=== PATIENT | female | born 1990 | race Caucasian/White ===

== ENCOUNTER 2018-07-24 09:16 | Emergency (ER) | payer MEDICAID ==
[~2018-07-24] VITALS: Ht 157.5 cm; Wt 63.0 kg
[2018-07-24 09:27] VITALS: Ht 157.5 cm; Wt 63.0 kg
[2018-07-24] MEDS ORDERED: ACETAMINOPHEN 325 MG TAB PO ONE (10:30)
[2018-07-24] MEDS ORDERED: SOD CHLORIDE 0.9% 1,000 ML IV ONE (10:30)
[2018-07-24] MEDS ORDERED: OSELTAMIVIR 75 MG CAP PO ONE (11:30)
[2018-07-24] MEDS ORDERED: CEFTRIAXONE 1 GM/50 ML (PMX) 50 ML IVPB ONE (11:30)
[2018-07-24] MEDS ORDERED: SODIUM CHLORIDE 0.9% 1L BAG IV* STA (12:04)
[2018-07-24] MEDS ORDERED: CEPH-443 PO (12:44)
[2018-07-24] MEDS ORDERED: OSEL75CA23 PO (12:44)
[2018-07-24] MEDS ORDERED: ACET500C5 PO (12:44)
[2018-07-24] MEDS ORDERED: BEN25 PO (12:44)
[2018-07-24 13:12] VITALS: BP 109/60; PULSE 100; RESP 20
--- NOTE | 2018-07-24 21:27 | ERD ---
ER Documentation Chief Complaint Chief Complaint pt bib family with c/o flu like symptoms since yesterday HPI 27-year-old female patient with no significant past medical history presents to ED complaining of fever, started yesterday. Patient has a low-grade fever 100.8. Ibuprofen, Tylenol was ordered to further downtrend patient's temperature. Denies any chest pain, shortness of breath, nausea, vomiting, diarrhea, neck stiffness. ROS All systems reviewed and are negative except as per history of present illness. Medications Home Meds Active Scripts Diphenhydramine Hcl* (Benadryl*) 25 Mg Cap, 25 MG PO QHS, #20 CAP Prov:TATIANA GARCIA-C 07/24/18 Oseltamivir Phosphate* (Tamiflu*) 75 Mg Capsule, 75 MG PO BID for 5 Days, #9 CAP you already took 1 tab in the hospital. you have 9 tabs left over to take over the course of 5 days. Prov:TATIANA GARCIA-C 07/24/18 Acetaminophen* (Tylophen*) 500 Mg Capsule, 1 CAP PO Q6H PRN for PAIN AND OR ELEVATED TEMP, #20 CAP Prov:TATIANA GARCIA-C 07/24/18 Cephalexin* (Keflex*) 500 Mg Capsule, 500 MG PO QID for 7 Days, CAP Prov:TATIANA GARCIA-C 07/24/18 Allergies Allergies: Coded Allergies: No Known Allergy (Unverified , 07/24/18) PMhx/Soc Medical and Surgical Hx: pt denies Medical Hx, pt denies Surgical Hx Hx Alcohol Use: No Hx Substance Use: No Hx Tobacco Use: No FmHx Family History: No diabetes, No coronary disease Physical Exam Vitals Vital Signs Date Temp Pulse Resp B/P (MAP) Pulse Ox O2 O2 Flow FiO2 Time Delivery Rate 07/24/18 98.9 100 20 109/60 100 Room Air 13:12 (76) 07/24/18 98.9 124 20 104/58 100 Room Air 11:40 (73) 07/24/18 100.8 139 20 114/68 98 09:27 (83) Physical Exam Const: Srp-nbu-lgrqqjomy, well-nourished. In no acute distress. Smiling and playful. Head: Atraumatic, normocephalic Eyes: Normal Conjunctiva without injection. No purulent discharge. PERRL. EOMI ENT: Normal external ear. Ear canal without erythema. Tympanic membrane pearly caceres without effusion or bulging. Nasal canal clear with normal turbinates. Moist oropharynx without tonsillar exudates. Non-erythematous pharynx. Uvula midline. No drooling. No trismus. Neck: Full range of motion. No meningismus. No cervical lymphadenopathy. Resp: Clear to auscultation bilaterally. No wheezing, rhonchi, rales, or crackles. No accessory muscle use. No retractions. No stridor at rest. Cardio: Regular rate and rhythm. No murmurs, rubs or gallops. Abd: Soft, non tender, non distended. Normal bowel sounds. No palpable masses. Skin: No petechiae or rashes Ext: No cyanosis, or edema. Neur: Awake and alert. Psych: Normal Mood and Affect Results 24 hrs Laboratory Tests Test 07/24/18 10:19 07/24/18 10:28 Urine Color CAMILLE Urine Clarity CLOUDY Urine pH 5.0 Urine Specific [place] 1.026 Urine Ketones 2+ mg/dL Urine Nitrite NEGATIVE mg/dL Urine Bilirubin NEGATIVE mg/dL Urine Urobilinogen NEGATIVE mg/dL Urine Leukocyte Esterase TRACE Jasen/ul Urine Microscopic RBC 0 /HPF Urine Microscopic WBC 18 /HPF Urine Squamous Epithelial Cells FEW /HPF Urine Bacteria MODERATE /HPF Urine Mucus MANY /HPF Urine Hemoglobin NEGATIVE mg/dL Urine Glucose NEGATIVE mg/dL Urine Total Protein NEGATIVE mg/dl POC Beta HCG, Qualitative POSITIVE Current Medications Medications Dose Sig/Toi Start Time Status Last (Trade) Ordered Route PRN Stop Time Admin Dose Reason Admin 650 mg ONCE ONCE 07/24/18 DC 07/24/18 Acetaminophen PO 10:30 10:18 (Tylenol 07/24/18 10:31 Tab) Sodium 1,000 ml @ Q1H ONCE 07/24/18 DC 07/24/18 Chloride 1,000 mls/hr IV 10:30 10:31 07/24/18 11:29 Oseltamivir 75 mg ONCE ONCE 07/24/18 DC 07/24/18 Phosphate PO 11:30 11:40 (Tamiflu) 07/24/18 11:31 Ceftriaxone 50 ml @ ONCE ONCE 07/24/18 DC 07/24/18 Sodium 100 mls/hr IVPB 11:30 11:39 2/22/19 11:59 Sodium 890 ml BOLUS OVER 2 07/24/18 DC 07/24/18 Chloride HOURS STAT 12:04 12:12 (NS) IV* 07/24/18 12:06 Procedures/MDM 27-year-old female patient with no significant past medical problem is ED complaining of fever, cough, rhinorrhea. Patient has flulike symptoms, and her . Patient is . Patient has a low-grade fever 100.8. Patient is tachycardic at 139. Patient was given 30 mL/kg normal saline. Patient's influenza was positive. Urine also showed leukocyte esterase. Patient was treated for urinary tract infection. Patient will treat here in the ED with ceftriaxone 1 [address] IV. Discuss[address] with Dr. Lyon, who agreed with the management discharge plan. Low suspicion for sepsis, pneumonia, pyelonephritis, acute abdomen, ectopic , or other emergent conditions. Diagnosis: Influenza, Urinary tract infection, Fever Discharge medications: Benadryl, Tamiflu, Tylenol, Keflex Instructed parent to bring patient to follow up with court reporter in 1-2 days. Instructed parent to bring patient back to the ED sooner for any worsening symptoms. Parent's questions were answered. Parent understood and agreed with discharge plan. Patient discharged stable. Disclaimer: Inadvertent spelling and grammatical errors are likely due to EHR/dictation software use and do not reflect on the overall quality of patient care. Also, please note that the electronic time recorded on this note does not necessarily reflect the actual time of the patient encounter. Departure Diagnosis: Primary Impression: Influenza Additional Impressions: Urinary tract infection Urinary tract infection type: site unspecified Hematuria presence: without hematuria Qualified Codes: N39.0 - Urinary tract infection, site not specified Fever Fever type: unspecified Qualified Codes: R50.9 - Fever, unspecified Condition: Stable Patient Instructions: Influenza (Flu) and , Urinary Tract Infections in Women Referrals: COMMUNITY CLINICS YOU HAVE RECEIVED A MEDICAL SCREENING EXAM AND THE RESULTS INDICATE THAT YOU DO NOT HAVE A CONDITION THAT REQUIRES URGENT TREATMENT IN THE EMERGENCY DEPARTMENT. FURTHER EVALUATION AND TREATMENT OF YOUR CONDITION CAN WAIT UNTIL YOU ARE SEEN IN YOUR DOCTORS OFFICE WITHIN THE NEXT 1-2 DAYS. IT IS YOUR RESPONSIBILITY TO MAKE AN APPOINTMENT FOR FOLOW-UP CARE. IF YOU HAVE A PRIMARY DOCTOR --you should call your primary doctor and schedule an appointment IF YOU DO NOT HAVE A PRIMARY DOCTOR YOU CAN CALL OUR PHYSICIAN REFERRAL HOTLINE AT IF YOU CAN NOT AFFORD TO SEE A PHYSICIAN YOU CAN CHOSE FROM THE FOLLOWING [facility] [address] [facility] [address] [facility] [address] [facility] [address] [facility] [address] [facility]. [facility] [address] [facility]. [facility] YOU HAVE RECEIVED A MEDICAL SCREENING EXAM AND THE RESULTS INDICATE THAT YOU DO NOT HAVE A CONDITION THAT REQUIRES URGENT TREATMENT IN THE EMERGENCY DEPARTMENT. FURTHER EVALUATION AND TREATMENT OF YOUR CONDITION CAN WAIT UNTIL YOU ARE SEEN IN YOUR DOCTORS OFFICE WITHIN THE NEXT 1-2 DAYS. IT IS YOUR RESPONSIBILITY TO MAKE AN APPOINTMENT FOR FOLOW-UP CARE. IF YOU HAVE A PRIMARY DOCTOR --you should call your primary doctor and schedule and appointment IF YOU DO NOT HAVE A PRIMARY DOCTOR YOU CAN CALL OUR PHYSICIAN REFERRAL HOTLINE AT . IF YOU CAN NOT AFFORD TO SEE A PHYSICIAN YOU CAN CHOSE FROM THE FOLLOWING [facility]: [facility] [address] [place] [address] [facility] [address] [place] [address] [facility] [address] [place] [address] [facility] Additional Instructions: Call your primary care doctor TOMORROW for an appointment during the next 2-3 days.See the doctor sooner or return here if your condition worsens before your appointment time. TATIANA GARCIA PA-C Jul 24, 2018 21:27
== END 2018-07-24 13:12 | disposition home or self-care (01) ==
LOC: FTE 09:16 → EDUNIT# 09:16 → FTE 13:12
DX: O99.519 Diseases of the respiratory system complicating pregnancy, unspecified trimester (principal); O23.40 Unspecified infection of urinary tract in pregnancy, unspecified trimester; J10.1 Influenza due to other identified influenza virus with other respiratory manifestations; Z3A.00 Weeks of gestation of pregnancy not specified
CPT/HCPCS: 81001; 81025; 87400; J0696; J7030; Z7610; 96374

== ENCOUNTER 2018-12-14 11:04 | Inpatient (IN) | payer MEDICAID, OTHER ==
[~2018-12-14] VITALS: Ht 157.5 cm; Wt 81.3 kg
[~2018-12-14 11:04] MED LIST: ACET500C5 PO; BEN25 PO; CEPH-443 PO; OSEL75CA23 PO
[2018-12-14] MEDS ORDERED: PNV11TAB PO (11:22)
[2018-12-14 11:23] VITALS: Ht 157.5 cm; Wt 81.3 kg
[2018-12-14 11:26] VITALS: BP 136/90; PULSE 93; RESP 19
[2018-12-14] MEDS ORDERED: IBUPROFEN 600 MG TAB PO PRN (12:00)
[2018-12-14] MEDS ORDERED: AMPICILLIN 2 GM/NS (PMX) 100 ML IV ONE (12:00)
[2018-12-14] MEDS ORDERED: METHYLERGONOVINE 0.2 MG INJ IM PRN (12:00)
[2018-12-14] MEDS ORDERED: LIDOCAINE 1% (MPF) 30 ML INJ INJ PRN (12:00)
[2018-12-14] MEDS ORDERED: OXYTOCIN 30 UNITS/LR 500 ML IV SCH ×2 (12:00)
[2018-12-14] MEDS ORDERED: CARBOPROST 250 MCG INJ IM PRN (12:00)
[2018-12-14] MEDS ORDERED: OXYTOCIN 30 UNITS/LR 500 ML IV PRN (12:00)
[2018-12-14] MEDS ORDERED: BUTORPHANOL 2 MG INJ IV PRN (12:00)
[2018-12-14] MEDS ORDERED: MISOPROSTOL 200 MCG TAB PR PRN (12:00)
[2018-12-14] MEDS: LACTATED RINGER'S 1,000 ML IV SCH ×2 (13:26→17:41)
[2018-12-14] MEDS: MISOPROSTOL 50 MCG CAPSULE PO SCH (22:54)
[2018-12-15] MEDS ORDERED: MISOPROSTOL 50 MCG CAPSULE PO SCH ×2 (01:00→22:30)
[2018-12-15] MEDS: AMPICILLIN 1 GM/NS (PMX) 50 ML IV SCH ×5 (03:01→23:44)
[2018-12-15] MEDS: LACTATED RINGER'S 1,000 ML IV SCH ×2 (03:01→14:00)
[2018-12-15] MEDS: MISOPROSTOL 50 MCG CAPSULE PO SCH ×5 (03:02→20:43)
--- NOTE | 2018-12-15 13:04 | HP ---
Date/Time of Note Date/Time of Note DATE: 12/15/18 TIME: 13:03 OB - History Hx of Present Free Text/Dictation admitted for elevated BP in office and induction for PIH : 1 Para: 0 Ultrasounds: Normal mid trimester US Obstetrical Complications: None Medical Complications: None Past Family/Social History * Past Medical, Surgical, Family and Obstetric Histories reviewed from chart. OB Admission Exam Vital Signs Vital Signs Vital Signs Date Temp Pulse Resp B/P (MAP) Pulse Ox O2 O2 Flow FiO2 Time Delivery Rate 12/14/18 98.4 93 19 136/90 Room Air 11:26 (105) Physical Exam HEENT: WNL Heart: Rhythm Normal Lungs: Clear, Equal Abdomen: WNL Extremities: Normal Reflexes: Normal Cervical Dilatation: 2cm Effacement: 25% Station: -3 Membranes: Intact Heart Rate: 130's Accelerations: Accelerations Present Varibility: Moderate Contractions on Admission: 6-10 Minutes Apart Intensity: Moderate Last 72 hours Lab Results CBC & BMP 12/14/18 13:15 Liver Function Test 12/14/18 13:15 Alanine Aminotransferase (ALT/SGPT) 15 Albumin 3.6 Alkaline Phosphatase 185 H Aspartate Amino Transf (AST/SGOT) 22 Direct Bilirubin 0.00 Total Protein 7.2 OB Assessment/Plan Reason for admission: induction of labor (for PIH) Plan: Induction STEPHEN RICHARDSON MD Dec 15, 2018 13:04
[2018-12-15] MEDS ORDERED: MAGNESIUM SULFATE 4 GM/100 ML 100 ML IVPB ONE (19:00)
[2018-12-15] MEDS: MAGNESIUM SULFATE 20 GM/500 ML 500 ML IV SCH (20:22)
[2018-12-16] MEDS: LACTATED RINGER'S 1,000 ML IV SCH ×3 (01:38→19:26)
[2018-12-16] MEDS: AMPICILLIN 1 GM/NS (PMX) 50 ML IV SCH ×5 (03:43→20:04)
[2018-12-16] MEDS ORDERED: ACETAMINOPHEN 325 MG TAB PO ONE ×2 (06:38→15:30)
[2018-12-16] MEDS: MAGNESIUM SULFATE 20 GM/500 ML 500 ML IV SCH ×2 (06:44→17:01)
[2018-12-16] MEDS: OXYTOCIN 30 UNITS/LR 500 ML IV SCH (11:45)
[2018-12-17] MEDS: AMPICILLIN 1 GM/NS (PMX) 50 ML IV SCH ×7 (00:04→21:24)
[2018-12-17] MEDS: MAGNESIUM SULFATE 20 GM/500 ML 500 ML IV SCH ×3 (02:14→22:34)
[2018-12-17] MEDS: LACTATED RINGER'S 1,000 ML IV SCH (10:17)
--- NOTE | 2018-12-17 14:10 | PREAC ---
Date/Time of Note Date/Time of Note DATE: 12/17/18 TIME: 14:09 Anesthesia Eval and Record Evaluation Time Pre-Procedure Interview DATE: 12/17/18 TIME: 14:09 Age 28 Sex female NPO: 8 hrs Preoperative diagnosis Planned procedure labor epidural Past Medical History Past Medical History: Includes GI: Obesity Surgery & Anesthesia Issues No known issue Meds Anticoagulation: No Beta Mague within 24 hr: No Reason Beta Mague not given: Pt. not on B-Mague Reported Medications [id number] ( 19) 1 Each Tablet, 1 TAB PO DAILY, TAB 12/14/18 Discontinued Scripts Diphenhydramine Hcl* (Benadryl*) 25 Mg Cap, 25 MG PO QHS, #20 CAP Prov:TATIANA GARCIA PA-C 07/24/18 Oseltamivir Phosphate* (Tamiflu*) 75 Mg Capsule, 75 MG PO BID for 5 Days, #9 CAP you already took 1 tab in the hospital. you have 9 tabs left over to take over the course of 5 days. Prov:TATIANA GARCIA PA-C 07/24/18 Acetaminophen* (Tylophen*) 500 Mg Capsule, 1 CAP PO Q6H PRN for PAIN AND OR ELEVATED TEMP, #20 CAP Prov:TATIANA GARCIA PA-C 07/24/18 Cephalexin* (Keflex*) 500 Mg Capsule, 500 MG PO QID for 7 Days, CAP Prov:TATIANA GARCIA PA-C 07/24/18 Current Medications Ampicillin 50 ml @ 100 mls/hr Q4H IV Last administered on 12/17/18at 11:55; Admin Dose 100 MLS/HR; Start 12/14/18 at 16:00 Butorphanol Tartrate (Stadol) 2 mg Q2H PRN IV .PAIN SCALE 6-10 Last administered on 12/17/18at 12:23; Admin Dose 2 MG; Start 12/14/18 at 12:00 Lidocaine (Xylocaine 1% (Mpf)) 30 ml ONCE PRN INJ .EPISIOTOMY; Start 12/14/18 at 12:00 Oxytocin/Lactated Ringer's 500 ml @ 500 mls/hr ONCE POST IV ; Start 12/14/18 at 12:00 Oxytocin/Lactated Ringer's 500 ml @ 125 mls/hr POST IV ; Start 12/14/18 at 12:00 Ibuprofen (Motrin) 600 mg ONCE PRN PO .PAIN 1-5; Start 12/14/18 at 12:00 Oxytocin/Lactated Ringer's 500 ml @ 0 mls/hr ONCE PRN IV .VAGINAL BLEEDING; Start 12/14/18 at 12:00 Methylergonovine Maleate (Methergine) 0.2 mg ONCE PRN IM .VAGINAL BLEEDING; Start 12/14/18 at 12:00 Carboprost Tromethamine (Hemabate) 250 mcg ONCE PRN IM .VAGINAL BLEEDING; Start 12/14/18 at 12:00 Misoprostol (Cytotec) 1,[address] .VAGINAL BLEEDING; Start 12/14/18 at 12:00 Magnesium Sulfate 500 ml @ 50 mls/hr Q10H IV Last administered on 12/17/18at 12:11; Admin Dose 50 MLS/HR; Start 12/15/18 at 19:00 Oxytocin/Lactated Ringer's 500 ml @ 0 mls/hr Q0M IV Last administered on 12/16/18at 11:45; Admin Dose 1 MLS/HR; Start 12/16/18 at 12:00 Ondansetron HCl (Zofran Inj) 4 mg Q4H PRN IV NAUSEA AND/OR VOMITING Last administered on 12/17/18at 00:04; Admin Dose 4 MG; Start 12/17/18 at 00:00 Meds reviewed: Yes Allergies Coded Allergies: No Known Allergy (Unverified , 07/24/18) Allergies Reviewed: Yes Labs/Studies Labs Reviewed: Reviewed by anesthesiologist Result Diagram: 12/15/18201912/15/182019 test: Positive Pre-procedure Exam Last vitals Vital Signs Date Temp Pulse Resp B/P (MAP) Pulse Ox O2 O2 Flow FiO2 Time Delivery Rate 12/14/18 98.4 93 19 136/90 Room Air 11:26 (105) Airway: Adequate mouth opening, Adequate thyromental dist Mallampati: Mallampati II Teeth: Normal Lung: Normal Heart: Normal ASA Physical Status ASA physical status: 2 Emergency: None Planned Anesthetic Neuraxial: Epidural Pre-operative Attestations Prior to commencing anesthesia and surgery, the patient was re-evaluated, there was verification of: *The patient's identity *The results of appropriate recent lab work and preoperative vital signs *The above evaluation not changing prior to induction *Anesthetic plan, risk benefits, alternative and complications discussed with patient/family; questions answered; patient/family understands, accepts and wishes to proceed. BARRINGTON CAMARGO Dec 17, 2018 14:10
[2018-12-17] MEDS ORDERED: DIPHENHYDRAMINE 50 MG INJ IV PRN (14:30)
[2018-12-17] MEDS ORDERED: HYDROmorphONE 0.5 MG/0.5 ML SYG IV PRN ×2 (14:30)
[2018-12-17] MEDS ORDERED: ONDANSETRON 4 MG INJ IV PRN ×2 (14:30)
[2018-12-17] MEDS ORDERED: NALOXONE (0.4 MG/ML) INJ IV PRN (14:30)
[2018-12-17] MEDS ORDERED: KETOROLAC 30 MG INJ IV PRN (14:30)
[2018-12-17] MEDS: DEXTROSE 5%-LR 1,000 ML IV PRN (17:58)
[2018-12-17] MEDS: OXYTOCIN 30 UNITS/LR 500 ML IV SCH (17:58)
[2018-12-17] MEDS: FENTAnyl 2MCG/ML-ROPIV 0.2% 100 ML BAG EPI SCH ×2 (20:55→21:37)
[2018-12-17] MEDS ORDERED: CLINDAMYCIN 900 MG INJ IVPB SCH (21:00)
[2018-12-17] MEDS ORDERED: ACETAMINOPHEN 500 MG TAB PO PRN (21:00)
[2018-12-17] MEDS: CLINDAMYCIN 900 MG/D5W (PMX) 50 ML IVPB SCH (21:44)
[2018-12-18] MEDS: AMPICILLIN 1 GM/NS (PMX) 50 ML IV SCH ×5 (01:39→16:35)
[2018-12-18] MEDS: CLINDAMYCIN 900 MG/D5W (PMX) 50 ML IVPB SCH ×3 (03:33→15:24)
[2018-12-18] MEDS: LACTATED RINGER'S 1,000 ML IV SCH ×3 (03:34→16:08)
[2018-12-18] MEDS ORDERED: MINERAL OIL LIGHT 10 ML VIAL TOP PRN (04:00)
[2018-12-18] MEDS: FENTAnyl 2MCG/ML-ROPIV 0.2% 100 ML BAG EPI SCH ×2 (05:59→11:51)
[2018-12-18] MEDS: MAGNESIUM SULFATE 20 GM/500 ML 500 ML IV SCH (08:27)
[2018-12-18] MEDS ORDERED: LIDOCAINE 1.5%/EPI MPF (SDV) 30 ML VIAL ONE ×2 (09:18→18:16)
[2018-12-18] MEDS ORDERED: MINERAL OIL LIGHT 10 ML VIAL TOP ONE (13:30)
[2018-12-18] MEDS: DEXTROSE 5%-LR 1,000 ML IV PRN (17:25)
[2018-12-18] MEDS ORDERED: CEFAZOLIN 2 GM/50 ML (PMX) 50 ML IVPB ONE (18:14)
--- NOTE | 2018-12-18 18:15 | PREAC ---
Date/Time of Note Date/Time of Note DATE: 12/18/18 TIME: 18:14 Anesthesia Eval and Record Evaluation Time Pre-Procedure Interview DATE: 12/18/18 TIME: 18:14 Age 28 Sex female NPO: 8 hrs Preoperative diagnosis failure of progress Planned procedure c section Past Medical History Past Medical History: None Surgery & Anesthesia Issues No known issue Meds Anticoagulation: No Beta Mague within 24 hr: No Reason Beta Mague not given: Pt. not on B-Mague Reported Medications [id number] ( 19) 1 Each Tablet, 1 TAB PO DAILY, TAB 12/14/18 Discontinued Scripts Diphenhydramine Hcl* (Benadryl*) 25 Mg Cap, 25 MG PO QHS, #20 CAP Prov:TATIANA GARCIA PA-C 07/24/18 Oseltamivir Phosphate* (Tamiflu*) 75 Mg Capsule, 75 MG PO BID for 5 Days, #9 CAP you already took 1 tab in the hospital. you have 9 tabs left over to take over the course of 5 days. Prov:TATIANA GARCIA PA-C 07/24/18 Acetaminophen* (Tylophen*) 500 Mg Capsule, 1 CAP PO Q6H PRN for PAIN AND OR ELEVATED TEMP, #20 CAP Prov:TATIANA GARCIA PA-C 07/24/18 Cephalexin* (Keflex*) 500 Mg Capsule, 500 MG PO QID for 7 Days, CAP Prov:TATIANA GARCIA PA-C 07/24/18 Current Medications Ampicillin 50 ml @ 100 mls/hr Q4H IV Last administered on 12/18/18at 16:35; Admin Dose 100 MLS/HR; Start 12/14/18 at 16:00 Butorphanol Tartrate (Stadol) 2 mg Q2H PRN IV .PAIN SCALE 6-10 Last administered on 12/17/18at 12:23; Admin Dose 2 MG; Start 12/14/18 at 12:00 Lidocaine (Xylocaine 1% (Mpf)) 30 ml ONCE PRN INJ .EPISIOTOMY; Start 12/14/18 at 12:00 Oxytocin/Lactated Ringer's 500 ml @ 500 mls/hr ONCE POST IV ; Start 12/14/18 at 12:00 Oxytocin/Lactated Ringer's 500 ml @ 125 mls/hr POST IV ; Start 12/14/18 at 12:00 Ibuprofen (Motrin) 600 mg ONCE PRN PO .PAIN 1-5; Start 12/14/18 at 12:00 Oxytocin/Lactated Ringer's 500 ml @ 0 mls/hr ONCE PRN IV .VAGINAL BLEEDING; Start 12/14/18 at 12:00 Carboprost Tromethamine (Hemabate) 250 mcg ONCE PRN IM .VAGINAL BLEEDING; Start 12/14/18 at 12:00 Misoprostol (Cytotec) 1,000 mcg ONCE PRN RI .VAGINAL BLEEDING; Start 12/14/18 at 12:00 Magnesium Sulfate 500 ml @ 50 mls/hr Q10H IV Last administered on 12/18/18at 08:27; Admin Dose 50 MLS/HR; Start 12/15/18 at 19:00 Oxytocin/Lactated Ringer's 500 ml @ 0 mls/hr Q0M IV Last administered on 12/17/18at 17:58; Admin Dose 20 MLS/HR; Start 12/16/18 at 12:00 Ondansetron HCl (Zofran Inj) 4 mg Q4H PRN IV NAUSEA AND/OR VOMITING Last administered on 12/17/18at 00:04; Admin Dose 4 MG; Start 12/17/18 at 00:00 Fentanyl/ Ropivacaine 100 ml EPIDURAL INFUSION EPI Last administered on 12/18/18 at 11:51; Admin Dose 100 ML; Start 12/17/18 at 14:30 Lactated Ringer's 1,000 ml @ 75 mls/hr [id number] IV Last administered on 12/18/18at 16:08; Admin Dose 75 MLS/HR; Start 12/17/18 at 16:55 Dextrose/Lactated Ringer's 1,000 ml @ 75 mls/hr [id number] PRN IV NOTE Last administered on 12/18/18at 17:25; Admin Dose 75 MLS/HR; Start 12/17/18 at 17:30 Acetaminophen (Tylenol Tab) 1,000 mg Q6H PRN PO MILD PAIN(1-3)OR ELEVATED TEMP Last administered on 12/17/18at 21:36; Admin Dose 1,000 MG; Start 12/17/18 at 2 1:00 Clindamycin HCl/ Dextrose 50 ml @ 100 mls/hr Q6H IVPB Last administered on 12/18/18at 15:24; Admin Dose 100 MLS/HR; Start 12/17/18 at 21:30 Mineral Oil (Muri-Lube) 20 ml ONCE PRN TOP DELIVERY; Start 12/18/18 at 04:00; Stop 12/19/18 at 03:59 Cefazolin Sodium/ Dextrose 50 ml @ 100 mls/hr ONCE IVPB ; Start 12/18/18 at 18:30 Meds reviewed: Yes Allergies Coded Allergies: No Known Allergy (Unverified , 12/17/18) Allergies Reviewed: Yes Labs/Studies Labs Reviewed: Reviewed by anesthesiologist Result Diagram: 12/15/18201912/15/182019 test: Positive Studies: ECG (n/a), CXR (n/a) Pre-procedure Exam Last vitals Vital Signs Date Temp Pulse Resp B/P (MAP) Pulse Ox O2 O2 Flow FiO2 Time Delivery Rate 12/17/18 100.1 22:35 12/14/18 93 19 136/90 Room Air 11:26 (105) Airway: Adequate mouth opening Mallampati: Mallampati I Teeth: Normal Lung: Normal Heart: Normal ASA Physical Status ASA physical status: 2 Emergency: None Planned Anesthetic Neuraxial: Epidural Pre-operative Attestations Prior to commencing anesthesia and surgery, the patient was re-evaluated, there was verification of: *The patient's identity *The results of appropriate recent lab work and preoperative vital signs *The above evaluation not changing prior to induction *Anesthetic plan, risk benefits, alternative and complications discussed with patient/family; questions answered; patient/family understands, accepts and wishes to proceed. PJ BLAIR MD Dec 18, 2018 18:15
[2018-12-18] MEDS ORDERED: METOCLOPRAMIDE 10 MG INJ ONE (18:16)
[2018-12-18] MEDS ORDERED: OXYTOCIN 30 UNITS/LR 500 ML IV ONE (18:16)
[2018-12-18] MEDS ORDERED: ONDANSETRON 4 MG INJ ONE (18:16)
[2018-12-18] MEDS ORDERED: KETOROLAC 30 MG INJ ONE (18:16)
[2018-12-18] MEDS ORDERED: CEFAZOLIN 2 GM/50 ML (PMX) 50 ML IVPB SCH (18:30)
[2018-12-18] MEDS ORDERED: FENTAnyl 50 MCG/ML VIAL ONE (18:54)
--- NOTE | 2018-12-18 19:03 | OPR ---
Operative Report Planned Procedure Procedure date Dec 18, 2018 Procedure(s) primary c/s Performed by see signature line [employer] Director: BECKY BRUCE MD Pre-procedure diagnosis PIH , FAILED INDUCTION , [id number] Anesthesia Type: Fltua2c epidural Post-Procedure Post-procedure diagnosis SAME Findings Live Baby [], Apgars [] and [], weight [], position [], [] presentation []cord. Estimated Blood Loss: 600 - 700 mls Specimen(s) none Grafts/Implant(s) none Complication(s) none Procedure Description Under satisfactory [EPIDURAL ] anesthesia, the patient was prepped and draped and placed in a supine position, tilted to the left. Pfannenstiel incision was made, carried through the subcutaneous tissue. Bleeders brought under control with electrocautery. Fascia incised to the length of the incision. Rectus muscles from the fascia, divided midline. Peritoneum exposed, entered through a transverse incision. Exploration of abdomen revealed gravid uterus. Bladder flap was developed. Transverse incision was made in the lower segment of the uterus. Amniotic sac ruptured. [] amniotic fluid noted. [] Nasal oropharyngeal suction was performed. The baby was handed to the team for immediate attention. The placenta was delivered manually intact. Uterine cavity was cleaned with wet sponge and drainage established. Uterus closed in 2 layers using [] in continuous fashion. Peritoneal cavity irrigated with warm saline. Sponge, needle and instrument count reported to be correct. Abdominal peritoneum closed with [ONE MONOCRYL] continuously. Rectus muscle approximated with []. Fascia closed with [ONE MONOCRYL], and skin closed with muriel. Estimated blood loss [700]mL. STEPHEN RICHARDSON MD Dec 18, 2018 19:03
[2018-12-18] MEDS ORDERED: DIPHENHYDRAMINE 50 MG INJ IV PRN ×2 (19:30)
[2018-12-18] MEDS ORDERED: ONDANSETRON 4 MG INJ IV PRN ×2 (19:30)
[2018-12-18] MEDS ORDERED: KETOROLAC 30 MG INJ IV PRN (19:30)
[2018-12-18] MEDS ORDERED: morphine 2 MG INJ IV PRN ×6 (19:30)
[2018-12-18] MEDS ORDERED: NALOXONE (0.4 MG/ML) INJ IV PRN (19:30)
[2018-12-18] MEDS: KETOROLAC 30 MG INJ IV PRN (19:52)
[2018-12-18 21:45] VITALS: BP 146/83; PULSE 93; RESP 18
[2018-12-18] MEDS ORDERED: LACTATED RINGER'S 1,000 ML IV SCH (22:22)
[2018-12-18] MEDS ORDERED: OXYTOCIN 30 UNITS/LR 500 ML IV SCH (22:22)
[2018-12-18] MEDS ORDERED: MISOPROSTOL 200 MCG TAB PR PRN (22:30)
[2018-12-18] MEDS ORDERED: LANOLIN HPA 1 PKT TOP PRN (22:30)
[2018-12-18] MEDS ORDERED: METHYLERGONOVINE 0.2 MG INJ IM PRN (22:30)
[2018-12-18] MEDS ORDERED: NACL 0.9% 3 ML SYG IV SCH (22:30)
[2018-12-18] MEDS ORDERED: HYDROCODONE/APAP (5/325) TAB PO PRN (22:30)
[2018-12-18] MEDS ORDERED: NA PHOSPHATE/BIPHOS 133 ML ENEMA PR PRN (22:30)
[2018-12-18] MEDS ORDERED: CARBOPROST 250 MCG INJ IM PRN (22:30)
[2018-12-18] MEDS ORDERED: OXYTOCIN 30 UNITS/LR 500 ML IV PRN (22:30)
[2018-12-18 22:45] VITALS: BP 142/85; PULSE 91; RESP 19
[2018-12-19] VITALS: BP 141/86; PULSE 91; RESP 18
--- NOTE | 2018-12-19 03:42 | PAC ---
Date/Time of Note Date/Time of Note DATE: 12/19/18 TIME: 03:42 Post-Anesthesia Notes Post-Anesthesia Note Last documented vital signs Vital Signs Date Temp Pulse Resp B/P (MAP) Pulse Ox O2 O2 Flow FiO2 Time Delivery Rate 12/19/18 98.2 91 18 141/86 96 Room Air 00:00 (104) Activity: WNL Respiratory function: WNL Cardiovascular function: WNL Mental status: Baseline Pain reasonably controlled: Yes Hydration appropriate: Yes Nausea/Vomiting absent: No PJ BLAIR MD Dec 19, 2018 03:42
[2018-12-19 04:00] VITALS: BP 128/72; PULSE 99; RESP 19
[2018-12-19 08:00] VITALS: BP 134/79; PULSE 112; RESP 18; RESP 20
[2018-12-19] MEDS: KETOROLAC 30 MG INJ IV PRN ×2 (08:04→15:29)
--- NOTE | 2018-12-19 11:46 | PAC ---
Date/Time of Note Date/Time of Note DATE: 12/19/18 TIME: 11:46 Post-Anesthesia Notes Post-Anesthesia Note Last documented vital signs Vital Signs Date Temp Pulse Resp B/P (MAP) Pulse Ox O2 O2 Flow FiO2 Time Delivery Rate 12/19/18 99.1 112 20 134/79 96 08:00 (97) 12/19/18 Room Air 08:00 Activity: WNL Respiratory function: WNL Cardiovascular function: WNL Mental status: Baseline Pain reasonably controlled: Yes Hydration appropriate: Yes Nausea/Vomiting absent: Yes BARRINGTON CAMARGO Dec 19, 2018 11:46
[2018-12-19 12:00] VITALS: BP 132/86; PULSE 102; RESP 18
[2018-12-19 16:00] VITALS: BP 127/81; PULSE 99; RESP 18
[2018-12-19 20:40] VITALS: BP 138/88; PULSE 95; RESP 18
--- NOTE | 2018-12-19 21:32 | QN ---
Documentation Comment post op day #1 status post primary positive flatus and voiding patient tolerating regular diet and ambulating VS - Last 72 Hours, by Label Date Temp Pulse Resp B/P (MAP) Pulse Ox O2 O2 Flow FiO2 Time Delivery Rate 12/19/18 98.4 99 18 127/81 99 Room Air 16:00 (96) 12/19/18 98.9 102 18 132/86 98 Room Air 12:00 (101) 12/19/18 99.1 112 20 134/79 96 08:00 (97) 12/19/18 99.0 112 18 134/79 95 Room Air 08:00 (97) 12/19/18 98.5 99 19 128/72 Room Air 04:00 (90) 12/19/18 98.2 91 18 141/86 96 Room Air 00:00 (104) 12/18/18 91 19 142/85 97 Room Air 22:45 (104) 12/18/18 98.7 93 18 146/83 95 Room Air 21:45 (104) 12/17/18 100.1 22:35 12/17/18 100.5 21:36 Chemistry Test 12/17/18 00:46 12/17/18 06:00 12/17/18 13:06 12/17/18 18:29 Magnesium 6.1 6.2 6.2 6.2 Level mg/dl (1.7-2.5) mg/dl (1.7-2.5 mg/dl (1.7-2.5 mg/dl (1.7-2.5 *H ) *H ) *H ) *H Test 12/18/18 07:29 12/18/18 12:09 Lactic Acid 1.5 Level mmol/L (0.5-2.0 ) Magnesium 5.8 6.3 Level mg/dl (1.7-2.5) mg/dl (1.7-2.5 *H ) *H patient is stable and doing well Encouraged to ambulate continue with routine post up care BLAKE HOYT MD Dec 19, 2018 21:32
[2018-12-19] MEDS: IBUPROFEN 800 MG TAB PO SCH (21:36)
[2018-12-20] VITALS: BP 128/80; PULSE 107; RESP 18
[2018-12-20 04:00] VITALS: BP 135/79; PULSE 99; RESP 18
[2018-12-20] MEDS: IBUPROFEN 800 MG TAB PO SCH ×3 (05:44→22:14)
[2018-12-20 08:00] VITALS: BP 130/86; PULSE 107; RESP 18
[2018-12-20 12:00] VITALS: BP 127/90; PULSE 91; RESP 18
--- NOTE | 2018-12-20 15:41 | PN ---
Date/Time of Note Date/Time of Note DATE: 12/20/18 TIME: 15:32 OB Subjective Subjective Subjective no c/o had b.m tolerating diet well OB Objective Objective Objective afebrile BP 127-138/80-90 no blood sugar done for GDM HbA1C 6.3 abdomen soft wound dry lochia min calf neg for tenderness post op CBC 13.6/9.6,27.4/149 OB Assessment/Plan Other Assessment: A stable post prim c/s #2 GDM P abdominal binder random blood sugar BECKY BRUCE MD Dec 20, 2018 15:41
[2018-12-20 16:00] VITALS: BP 129/80; PULSE 97; RESP 18
[2018-12-20 19:40] VITALS: BP 130/81; PULSE 86; RESP 18
[2018-12-21] VITALS: BP 128/76; PULSE 84; RESP 18
[2018-12-21 04:10] VITALS: BP 130/76; PULSE 82; RESP 18
[2018-12-21] MEDS: IBUPROFEN 800 MG TAB PO SCH (06:06)
[2018-12-21 08:00] VITALS: BP 136/89; PULSE 84; RESP 18
[2018-12-21] MEDS ORDERED: MEASLES,MUMPS,RUBELLA VACCINE INJ SC* ONE (09:00)
[2018-12-21] MEDS ORDERED: DIPHTH/TET/ACEL PERTUSS (ADULT) 0.5 ML VIAL IM* ONE (09:00)
--- NOTE | 2018-12-21 10:21 | DS ---
Date/Time of Note Date/Time of Note DATE: 12/21/18 TIME: 10:20 Discharge Summary Admission/Discharge Info Admit Date/Time Dec 14, 2018 at 11:04 Discharge Date/Time Discharge Diagnosis term , PIH Patient Condition: Stable Hospital Course unremarkable Home Meds Reported Medications [id number] ( 19) 1 Each Tablet, 1 TAB PO DAILY, TAB 12/14/18 Discontinued Scripts Diphenhydramine Hcl* (Benadryl*) 25 Mg Cap, 25 MG PO QHS, #20 CAP Prov:TATIANA GARCIA PA-C 07/24/18 Oseltamivir Phosphate* (Tamiflu*) 75 Mg Capsule, 75 MG PO BID for 5 Days, #9 CAP you already took 1 tab in the hospital. you have 9 tabs left over to take over the course of 5 days. Prov:TATIANA GARCIA PA-C 07/24/18 Acetaminophen* (Tylophen*) 500 Mg Capsule, 1 CAP PO Q6H PRN for PAIN AND OR ELEVATED TEMP, #20 CAP Prov:TATIANA GARCIA PA-C 07/24/18 Cephalexin* (Keflex*) 500 Mg Capsule, 500 MG PO QID for 7 Days, CAP Prov:TATIANA GARCIA PA-C 07/24/18 Primary Care Provider Not On Staff Doctor STEPHEN RICHARDSON MD Dec 21, 2018 10:21
--- NOTE | 2018-12-22 13:55 | DELSUM ---
Delivery Summary A-C Datetime Report Generated by CPN: 12/22/2018 13:55 DELIVERY PERSONNEL Manager Gift: Jennifer Galeano MATERNAL INFORMATION Delivery Anesthesia: Epidural Medications in Delivery: see anesthesia Delivery QBL (ml): 500 Placenta Cultured: No Maternal Complications: Other Other Maternal Complications: preeclampsia LABOR SUMMARY EDC: 12/28/2018 00:00 No. Babies in Womb: 1 Attempted: No Labor Anesthesia: Epidural LABOR INFORMATION Reason for Induction: Gest. HTN/PreEclam/Eclamp Onset of Labor: 12/17/2018 18:04 Complete Dilatation: 12/18/2018 12:25 Cervical Ripening Agents: Cytotec @ 50 Group B Beta Strep: Positive Antibiotics # of Doses: 26 Antibiotics Time of Last Dose: 12/18/2018 18:36 Steroids Given: None Reason Steroids Not Administered: Not Applicable MEMBRANES Membranes Rupture Method: Artificial Rupture of Membranes: 12/16/2018 23:50 Length of Rupture (hr): 42.98 Amniotic Fluid Color: Clear Amniotic Fluid Amount: Moderate Amniotic Fluid Odor: None STAGES OF LABOR Stage 1 hr: 18 Stage 1 min: 21 Stage 2 hr: 6 Stage 2 min: 24 Stage 3 hr: 0 Stage 3 min: 1 Total Time in Labor hr: 24 Total Time in Labor min: 46 CSECTION DELIVERY Primary Indication: Failed Induction Secondary Indication: Nonreassuring Stat CSection Urgency: Elective CSection Incidence: Primary Labor: Labor Elective: Elective CSection Incision: Lower Uterine Transverse BABY A INFORMATION Delivery Date/Time: 12/18/2018 18:49 Method of Delivery: Born in Route : No : N/A Forceps: N/A Vacuum Extraction: N/A Shoulder Dystocia : N/A SHOULDER DYSTOCIA BABY A Delivery Date/Time: 12/18/2018 18:49 PRESENTATION/POSITION BABY A Presentation: Cephalic Cephalic Presentation: Vertex Vertex Position: Left Occipital Anterior Breech Presentation: N/A PLACENTA INFORMATION BABY A Placenta Delivery Time : 12/18/2018 18:50 Placenta Method of Delivery: Manual Removal Placenta Status: Delivered SCORES BABY A Heart Rate 1 min: >100 bpm Resp Effort 1 min: Good Cry Reflex Irritability 1 min: Cough/Sneeze/Pulls Away Muscle Tone 1 min: Active Motion Color 1 min: Blue/Pale Resuscitation Effort 1 min: Tactile Stimulation; Oxygen; PPV/NCPAP SCORE 1 MIN: 8 Heart Rate 5 min: >100 bpm Resp Effort 5 min: Good Cry Reflex Irritability 5 min: Cough/Sneeze/Pulls Away Muscle Tone 5 min: Active Motion Color 5 min: Body [place], Extremit Blue Resuscitation Effort 5 min: Tactile Stimulation SCORE 5 MIN: 9 INFORMATION BABY A Gestational Age at Delivery: 38.4 Gestational Status: Early Term- 37- 38.6 Weeks Infant Outcome : Liveborn, with signs of life Condition : Stable Sex: Male IDENTIFICATION/MEDS BABY A ID Band Number: [id number] ID Band Location: Right Leg; Left Leg Sensor Applied: Yes Sensor Number: [id number] Sensor Location : Cord Clamp Vitamin K Given : Not Given Erythromycin Given: Not Given WEIGHT/LENGTH BABY A Birthweight (gm): 3085 Weight (lb): 6 Weight (oz): 13 Infant Length (in): 19.00 Infant Length (cm): 48.26 CORD INFORMATION BABY A No. Cord Vessels: 3 Nuchal Cord : N/A Cord Blood Taken: Yes Infant Suction: Mouth; Nose ASSESSMENT BABY A Infant Complications: Decreased Variability; Multiple Late Decels; Multiple Variable Decels Physical Findings at Delivery: Caput Succedaneum; Molding of the Head; Within Normal Limits Infant Respirations: Appears Normal [employer]/ALS Called : No Care By: Minnie Glover RN Transferred To: Remains with Mother
== END 2018-12-21 13:40 | disposition home or self-care (01) | DRG 788 ==
LOC: L-D 11:04 → PP1 12-18 21:50
PROVIDERS: ADMIT Obstetrics & Gynecology; ATTEND Obstetrics & Gynecology
PROC: 10D00Z1 Extraction of Products of Conception, Low, Open Approach (ICD-10-PCS; principal; 2018-12-19)
PROC: 3E033VJ Introduction of Other Hormone into Peripheral Vein, Percutaneous Approach (ICD-10-PCS; 2018-12-19)
DX: O13.4 Gestational [pregnancy-induced] hypertension without significant proteinuria, complicating childbirth (principal); O99.214 Obesity complicating childbirth; O62.0 Primary inadequate contractions; Z3A.38 38 weeks gestation of pregnancy; Z37.0 Single live birth
CPT/HCPCS: 62322; 76815; 80053; 81001; 83605; 83735; 84560; 85025; 85384; 85610; 85730; 86592; 86703; 86762; 86850; 86900; 86901; 87340; 88307; 90715; 99464; J0290; J0595; J0690; J1885; J2270; J2405; J2590; J2765; J3010; J3475; J7120